=== PATIENT | male | born 1985 ===

== ENCOUNTER 2017-05-29 11:40 | Emergency (ER) | payer BC ==
--- NOTE | 2017-05-29 14:45 | UC ---
Respiratory Complaint HPI - HPI Summary HPI Summary: Pt here w/ URI sx x [address] days[address] as ST and has progressed into nasal congestion, cough (worse in the AM) - feels like he can't get stuck out. Has tried mucinex and Sudafed w/o much relief of chest congestion. Drinking water but not much of an appetite. Denies fever, chills, N/V, ab pain. Has IBS which is triggered by stress and feels he's been stressed lately. Admits he may be slightly dehydrated or malnourished d/t low appetite w/ recent illness but does not have weakness, pain - just feels a little heady. Here today for persistent cough and h/o pneumonia - not sure if it feels the same as he was septic last time and hospitalized. Denies SOB, dyspnea, chest pain, fatigue, CABRERA. 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 Has not taken time off of work. Imms are UTD. NOTE: has HTN was but stopped taking medication (lisinopril). Reports his HTN is stress related. - History of Current Complaint Chief Complaint: UCGeneralIllness Stated Complaint: SORE THROAT, COUGH Time Seen by Provider: 05/29/17 14:30 Hx Obtained From: Patient, Family/Remedy Developer - Pain Intensity: 0 - Allergies/Home Medications Allergies/Adverse Reactions: Allergies Allergy/AdvReac Type Severity Reaction Status Date / Time No Known Allergies Allergy Verified 05/29/17 14:05 Home Medications: Home Medications NK [No Home Medications Reported] 05/29/17 [History Confirmed 05/29/17] PMH/Surg Hx/FS Hx/Imm Hx Previously Healthy: Yes - Surgical History Surgical History: Yes Surgery Procedure, Year, and Place: 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 - Family History Known Family History: Positive: None - Social History Occupation: Employed Full-time Lives: With Family Alcohol Use: Weekly Substance Use Type: None Smoking Status (MU): Never Smoked Tobacco - no 2nd hand smoke exposure Review of Systems Constitutional: Fatigue Eyes: Negative ENT: Sore Throat, Nasal Discharge, Sinus Congestion Respiratory: Cough Cardiovascular: Negative Gastrointestinal: Negative Genitourinary: Negative Motor: Negative Neurovascular: Negative Musculoskeletal: Negative Neurological: Headache Psychological: Other - stressed Is Patient Immunocompromised?: No All Other Systems Reviewed And Are Negative: Yes Physical Exam Triage Information Reviewed: Yes Appearance: Well-Appearing - appears mildly fatigued, No Pain Distress, Well- Nourished Vital Signs: Initial Vital Signs Temp 98.7 F 05/29/17 14:01 Pulse 101 05/29/17 14:01 Resp 14 05/29/17 14:01 BP 148/85 05/29/17 14:01 Pulse Ox 100 05/29/17 14:01 Vital Signs Reviewed: Yes ENT: Positive: Hearing grossly normal, Pharyngeal erythema - cobblestoning, Nasal congestion, TMs normal. Negative: Tonsillar swelling, Tonsillar exudate, Trismus, Muffled voice, Hoarse voice, Sinus tenderness Neck exam: Normal Neck: Positive: Supple, Nontender, No Lymphadenopathy Respiratory Exam: Normal Respiratory: Positive: Lungs clear, Normal breath sounds. Negative: Crackles, Rhonchi, Stridor, Wheezing Cardiovascular Exam: Normal Cardiovascular: Positive: RRR Abdominal Exam: Normal Abdomen Description: Positive: Nontender, No Organomegaly, Soft Bowel Sounds: Positive: Present Musculoskeletal Exam: Normal Musculoskeletal: Positive: Strength Intact Neurological Exam: Normal Neurological: Positive: Alert Psychological Exam: Normal Skin Exam: Normal UC Diagnostic Evaluation - Laboratory O2 Sat by Pulse Oximetry: 100 Respiratory Course/Dx - Course Course Of Treatment: CXR w/o acute findings - Differential Dx/Diagnosis Provider Diagnoses: Viral URI Discharge - Discharge Plan Condition: Stable Disposition: HOME Patient Education Materials: Upper Respiratory Infection (ED) Forms: *Work Release Referrals: No Primary Care Phys,NOPCP [Primary Care Provider] - [facility] [place] [facility] [place] [facility] [Outside] Additional Instructions: Perform nasal wash/netti pot 2 x day with 8 ounces of warm water + 1/4 teaspoon of salt or saline nasal spray as needed Perform throat gargles with warm salt water as needed Drink 60+ ounces of water daily Sleep 8+ hours per night Avoid Dairy and sugar Drink hot herbal/decaf tea with lemon & honey Drink chicken broth (preferably organic, free range chicken) Use a humidifier in your house, but especially near bed at night. You may also keep home temperature at 68F or less. Try a facial steam with or without eucalyptus essential oil or Milind's vapor rub for decongestion. Cough drops, Delsym. Avoid mucinex before bed as this can make post nasal drip worse. Avoid smoke, candles, perfumes/colonge, air fresheners, scented lotions, etc Consider taking Vitamin D3 5,000iu and Vitamin C 1,000mg every day during illness Follow-up with PCP if symptoms persist however URI symptoms may last from 7-14 days. *If shortness of breath, high fever despite acetaminophen/ibuprofen, intractable vomiting/diarrhea, weakness or chest pain, go to ED
--- NOTE | 2017-05-29 14:59 | RAD ---
INDICATION: Persistent cough COMPARISON: None TECHNIQUE: PA and lateral dual-energy views were obtained. FINDINGS: Bones/Soft Tissues: There are no acute bony findings. Cardiomediastinal: The cardiomediastinal silhouette is normal. Lungs: There are no infiltrates. Pleura: There are no pleural effusions. Other: None IMPRESSION: NEGATIVE EXAMINATION.
== END 2017-05-29 15:24 | disposition home or self-care (01) ==
LOC: UCCORT 11:40
DX: J06.9 Acute upper respiratory infection, unspecified (principal); I10 Essential (primary) hypertension
CPT/HCPCS: 71046; 99201; G0463